=== PATIENT | male | born 1990 | race Caucasian/White ===

== ENCOUNTER 2021-07-31 21:27 | Emergency (ER) | payer MEDICAID ==
[~2021-07-31] VITALS: Ht 190.5 cm; Wt 90.9 kg
[2021-07-31 21:50] LABS: COVID AG,FIA SOURCE NASAL SWAB
[2021-08-01] MEDS ORDERED: SODIUM CHLORIDE 0.9% 1,000 ML IV ONE
[2021-08-01] MEDS ORDERED: DEXAMETHASONE SOD PHOS 4 MG/ML VIAL IVP ONE
[2021-08-01 00:15] LABS: BASOPHILS % (AUTO) 0.3 % (0.0-2.0); HEMATOCRIT 37.6 % (41-53); HEMOGLOBIN 12.9 g/dL (13.5-17.5); LYMPHOCYTES # (AUTO) 1.6 K/uL (1.0-4.8); LYMPHOCYTES % (AUTO) 15.1 % (22.0-44.0); MEAN CORPUSCULAR HGB CONC 34.4 G/dL (31.0-37.0); MEAN CORPUSCULAR VOLUME 85 fL (80-100); MONOCYTES # (AUTO) 1.1 K/uL (0.1-1.0); NEUTROPHILS # (AUTO) 7.8 K/uL (1.8-7.7); NEUTROPHILS % (AUTO) 73.6 % (40.0-70.0); PLATELET COUNT (AUTO) 247 K/uL (150-450); RED BLOOD CELL COUNT(AUTO) 4.45 MIL/uL (4.50-5.90); RED CELL DISTRIBUTION WIDTH 13.6 % (11.5-14.5)
[2021-08-01 00:21] LABS: ANION GAP 5 mmol/L (8-16); CARBON DIOXIDE 30 mmol/L (22-29); CHLORIDE 101 mmol/L (98-107); CREATININE 0.82 mg/dL (0.60-1.30); GLOMERULAR FILTR. RATE CALC > 60 mL/min (>60); GLUCOSE,RANDOM 105 mg/dL (70-110); POTASSIUM 3.6 mmol/L (3.5-5.1); SODIUM SERUM 136 mmol/L (136-145); UREA NITROGEN, BLOOD 10 mg/dL (7-18)
[2021-08-01 00:26] LABS: ALANINE AMINOTRANSFERASE 22 U/L (12-78); ALBUMIN 2.8 g/dL (3.4-5.0); ALKALINE PHOSPHATASE 91 U/L (46-116); ASPARTATE AMINOTRANSFERASE 14 U/L (15-37); BILIRUBIN,TOTAL 0.3 mg/dL (0.1-1.0); TOTAL PROTEIN, SERUM 6.7 g/dL (6.4-8.2)
[2021-08-01] MEDS ORDERED: AMPICILLIN SODIUM/SULBACTAM NA 1.5 GM in SODIUM CHLORIDE 0.9% 50 ML IV ONE (00:30)
[2021-08-01] MEDS ORDERED: SODIUM CHLORIDE 0.9% 100 ML ONE (01:25)
[2021-08-01] MEDS ORDERED: IOHEXOL 350 MG/ML 100 ML VIAL ONE (01:26)
[2021-08-01] MEDS ORDERED: HYDROmorphone 2 MG/ML VIAL IM ONE (02:15)
[2021-08-01 08:16] VITALS: BP 133/85
[2021-08-01] MEDS ORDERED: PENI500T2 PO (09:29)
[2021-08-01] MEDS ORDERED: DEXAMETHASONE SOD PHOS 4 MG/ML VIAL IM ONE (09:30)
[2021-08-01] MEDS ORDERED: CefTRIAXone SODIUM 1 GM/VIAL IM ONE (09:30)
[2021-08-01] MEDS ORDERED: LIDOCAINE/PF 1% 2 ML VIAL IM ONE (09:30)
[2021-08-01] MEDS ORDERED: IBUP-2070 PO (09:30)
== END 2021-08-01 09:42 | disposition left against medical advice (07) ==
LOC: EMS 21:31
DX: J02.0 Streptococcal pharyngitis (principal); Z20.822 Contact with and (suspected) exposure to COVID-19
CPT/HCPCS: 36415; 70490; 80053; 85025; 87426; 87430; 96365; 96372; 96375; 99285; J0295; J0696; J1100; J1170; J3490; J7030; J7050 ×2; Q9967